=== PATIENT | female | born 1940 | race Caucasian/White ===

== ENCOUNTER 2016-08-26 12:24 | Inpatient (IN) ==
[2016-08-26] MEDS ORDERED: NITROSTAT SL PRN (12:48)
[2016-08-26] MEDS ORDERED: VASOTEC IV IVP PRN (12:48)
[2016-08-26] MEDS ORDERED: MORPHINE 4 MG/ML SYRINGE IVP PRN (12:48)
[2016-08-26] MEDS ORDERED: TYLENOL PO PRN (12:48)
[2016-08-26] MEDS ORDERED: VISTARIL INJ IM PRN (12:48)
[2016-08-26] MEDS ORDERED: ATROPINE SULFATE PFS IVP PRN (12:48)
[2016-08-26 13:06] LABS: BASOPHILS # (AUTO) 0.1 K/uL (0-0.2); BASOPHILS % (AUTO) 0.6 % (0.0-3.0); EOSINOPHILS # (AUTO) 0.1 K/ul (0.0-0.7); EOSINOPHILS % (AUTO) 0.8 % (0.0-7.0); HEMATOCRIT 40.7 % (37.0-47.0); HEMOGLOBIN 13.9 g/dl (12.0-16.0); IMMATURE GRANULOCYTE % (AUTO) 0.3 % (0.0-5.0); LYMPHOCYTES # (AUTO) 1.9 K/uL (0.60-3.4); LYMPHOCYTES % (AUTO) 19.3 (10.0-50.0); MEAN CORPUSCULAR HEMOGLOBIN 30.9 pg (27.0-31.0); MEAN CORPUSCULAR HGB CONC 34.2 (31.8-35.4); MEAN CORPUSCULAR VOLUME 90.4 fl (81.0-99.0); MONOCYTES # (AUTO) 0.6 K/uL (0.4-2.0); MONOCYTES % (AUTO) 6.5 (0-10); NEUTROPHILS % (AUTO) 72.5; PLATELET COUNT 296 10^3/uL (140-440); WHITE BLOOD COUNT 9.71 K/ul (4.6-10.2)
[2016-08-26 13:11] VITALS: BMI 35.5
[2016-08-26 13:46] LABS: ALBUMIN/GLOBULIN RATIO 1.11; ANION GAP 13.7; BILIRUBIN,TOTAL 0.38 mg/dL (0.00-1.20); BUN/CREATININE RATIO 17.59; CALCIUM 9.7 mg/dL (8.2-10.2); CREATININE 1.08 mg/dL (0.60-1.30); POTASSIUM 4.7 mmol/L (3.5-5.10); TOTAL PROTEIN 7.6 g/dL (5.8-8.1); TROPONIN I 0.021 ng/ml (0.0000-0.4000)
[2016-08-26 13:59] LABS: CREATINE KINASE MB 2.3 ng/ml (0.0-3.6)
[2016-08-26 14:20] LABS: BILIRUBIN,URINE Negative (NEGATIVE); KETONES,URINE Negative (NEGATIVE); LEUKOCYTE ESTERASE ,URINE Trace (NEGATIVE); NITRITE,URINE Negative (NEGATIVE); PROTEIN,URINE Negative (NEGATIVE); URINE, BLOOD Trace-intact (NEGATIVE)
[2016-08-26 14:23] LABS: ADD URINE MICROSCOPIC YES
[2016-08-26] MEDS: PROTONIX PO SCH (14:26)
--- NOTE | 2016-08-26 15:56 | DI ---
EXAM: CHEST FRONTAL VIEW HISTORY: Chest pain. COMPARISON: None FINDINGS: Heart size is within normal limits. There is at least mild aortic atherosclerosis. No ac nery infiltrates are seen. There is no consolidation, visible pleural fluid or pneumothorax. Bones r eveal no acute fracture. IMPRESSION: No acute cardiopulmonary process.
--- NOTE | 2016-08-26 16:16 | US ---
EXAM: Carotid ultrasound HISTORY: Carotid stenosis COMPARISON: 01/06/2016 TECHNIQUE: Carotid ultrasound was performed using parish scale, color, and Doppler imaging was perfor med. FINDINGS: Right carotid: There is atherosclerotic plaque in the bulb/proximal internal carotid artery. Peak systolic velocity measurement in the right internal carotid artery is 1.1 meters per second. End-di astolic velocity measurement in the right internal carotid artery is 0.3 meters per second. Right i nternal to common carotid artery peak systolic velocity ratio is 1.7. Flow in the right vertebral a rtery is antegrade. Left carotid: There is atherosclerotic plaque in the bulb/proximal internal carotid artery. Peak s ystolic velocity measurement in the left internal carotid artery is 1.0 meters per second. End-chi tolic velocity measurement in the left internal carotid artery is 0.2 meters per second. Left inter nal to common carotid artery peak systolic velocity ratio measures 1.1. Flow in the left vertebral artery is antegrade. IMPRESSION: 1. Right internal carotid: Peak systolic velocity corresponds with mild (less than 50%) stenosis, memo morales on the upper end of this range 2. Left internal carotid: Peak systolic velocity corresponds with mild (less than 50%) stenosis
[2016-08-26] MEDS: REGLAN PO SCH (16:37)
[2016-08-26] MEDS ORDERED: LOPRESSOR PO SCH (21:00)
[2016-08-26] MEDS ORDERED: ZOCOR PO SCH (21:00)
[2016-08-26 21:44] LABS: CREATINE KINASE 117 U/L; MYOGLOBIN 75 ng/ml
[2016-08-26 21:54] LABS: CREATINE KINASE MB 1.8 ng/ml (0.0-3.6)
[2016-08-27] MEDS: PROTONIX PO SCH ×2 (00:50→05:43)
[2016-08-27] MEDS ORDERED: SYNTHROID PO SCH (06:30)
[2016-08-27] MEDS ORDERED: ASPIRIN EC PO SCH (08:00)
[2016-08-27] MEDS ORDERED: ASPIRIN CHEWABLE PO SCH (08:00)
[2016-08-27] MEDS ORDERED: MOBIC PO SCH (08:00)
[2016-08-27] MEDS ORDERED: VITAMIN E PO SCH (09:00)
[2016-08-27] MEDS ORDERED: BENICAR PO SCH (09:00)
[2016-08-27] MEDS ORDERED: HYDROCHLOROTHIAZIDE PO SCH ×23 (09:00)
[2016-08-27] MEDS ORDERED: SENNA PO SCH (09:00)
[2016-08-27] MEDS ORDERED: [UNRECOGNIZED DRUG - OTHER] PO SCH ×22 (09:00)
[2016-08-27] MEDS ORDERED: ALLEGRA PO SCH (09:00)
[2016-08-27] MEDS ORDERED: OLMESARTAN PO SCH ×22 (09:00)
[2016-08-27] MEDS ORDERED: NON-FORMULARY MEDICATION (Meloxicam [Mobic] 15 MG) PO SCH ×22 (09:00)
[2016-08-27] MEDS ORDERED: VITAMIN E 1000 UNIT PO SCH (09:00)
--- NOTE | 2016-08-27 09:28 | HP ---
DATE OF SERVICE: 08/27/16 REASON FOR HOSPITALIZATION: Chest pain. HISTORY OF PRESENT ILLNESS: This is a 76-year-old female with chief complaint of chest pain, burning times 24 hours, nonexertional with no radiation. She has multiple CAD risk factors with family history of CAD, BMI greater than 30, dyslipidemia and hypertension. The patient is also feeling fatigued/tired. Also has some GERD symptoms. REVIEW OF SYSTEMS: CONSTITUTIONAL: Fatigue. No fever. HEENT: No sinus drainage, no sore throat. RESPIRATORY: No cough, no congestion. No hemoptysis. CARDIOVASCULAR: Shortness of breath. Atypical chest pain for coronary artery disease. No angina, CHF symptoms or palpitations. GASTROINTESTINAL: No melena or abdominal pain. No GERD. GENITOURINARY: No hematuria, no polyuria. ESTIMATE CLERK: No blackout, no dizziness, no headache, no double vision. MUSCULOSKELETAL: Osteoarthritis pain. No joint swelling. ENDOCRINE: No weight loss, no weight gain. SKIN: Not dry, no rash. PSYCHIATRIC: Anxious. No depression, no suicidal thoughts, no homicidal thoughts. PAST MEDICAL/SURGICAL HISTORY: 1. Left bundle branch block 2. Severe hypertension 3. Dyslipidemia 4. Hypothyroidism 5. GERD 6. Carotid stenosis 50% 7. Vitamin B12 deficiency 8. D & C 9. Tubal ligation 10. Tonsillectomy SOCIAL HISTORY: . Nonsmoker. No alcohol use. Two children. Employee of [employer]. FAMILY HISTORY: Father and mother . Two brothers (one , one living), no sisters. MEDICATIONS: 1. Benicar HCT 40/12.5 mg daily 2. Synthroid 100 mcg daily 3. Mobic 15 mg p.o. daily 4. Lopressor 50 mg p.o. daily bedtime 5. Simvastatin 40 mg p.o. daily bedtime 6. Aspiriin 81 mg daily 7. Oqbd-jzx-nzcddmr sinus medication 8. Fhyu-itz-lxxyxpn laxative 9. Xoax-eam-pubyknf Vitamin E 1000 units p.o. daily 10. Senna 8.6 mg p.o. daily ALLERGIES: CODEINE, HYZAAR (MADE SICK) PHYSICAL EXAMINATION: V/S: Temperature 97.3, respiratory rate 18, Pulse 70, BP 198/100, 02 sat 98%. GENERAL APPEARANCE: Oriented times three. HEENT: Normal. NECK: No JVP, no bruits. RESPIRATORY: Lungs are clear. CARDIOVASCULAR: S1, S2, no S3, no murmurs. No cyanosis, clubbing. No ascites. GI/ABDOMEN: No tenderness. Bowel sounds are active. EXTREMITIES: No edema, pulses +1, equal. ESTIMATE CLERK: Deep tendon reflexes, sensory, motor and gait all normal. LABS AND X-RAY FINDINGS: Chest x-ray normal. UA practically normal. Creatinine 1, BUN 19, potassium 4.7 normal. Liver profile normal. T4, TSH normal. A1C 5.7. CK-MB, troponins negative. Hemoglobin 13.9, hematocrit 40, WBC 9,000 with normal differential. EKG - left bundle branch block which is practically unchanged for more than 10 to 15 years. ASSESSMENT: 1. CHEST PAIN 2. LEFT BUNDLE BRANCH BLOCK/ABNORMAL EKG 3. SEVERE HYPERTENSION 4. DYSLIPIDEMIA 5. HYPOTHYROIDISM 6. BMI GREATER THAN 30 7. VITAMIN B12 DEFICIENCY 8. HISTORY OF CAROTID STENOSIS, 50% 2008 9. GERD PLAN: 1. Admit Regular 2. Routine telemetry 3. Continue medications 4. Vasotec 1.25 mg IV for systolic blood pressure greater than 150 5. Echocardiogram 6. Stress echo Sestamibi a.m. 7. T4 and TSH 8. A1C 9. Protonix 40 mg p.o. now and b.i.d. 10. Reglan 5 mg p.o. b.i.d. 11. Carotid scan TIME SPENT: More than 70 minutes. MTDD
[2016-08-27] MEDS: REGLAN PO SCH (09:37)
--- NOTE | 2016-08-27 10:02 | PCM.PROG ---
Attending Provider: ATTENDING PROVIDER: Dr. SHAINA NIXON DATE OF SERVICE: 08/27/16 SUBJECTIVE: This 76 year old WHITE/ F was hospitalized 08/26/16. The patient is hospitalized with chest burning, chest pain, and severe hypertension. The patient's blood pressure is labile with wide swings in systolic and diastolic pressure. EKG reveals left bundle branch block type of pattern with sinus rhythm. Cardiac markers negative. REVIEW OF SYSTEMS: (Negative at rest) CONSTITUTIONAL: No night sweats. No fatigue, malaise, lethargy. No fever or chills. HEENT: Eyes: No visual changes. No eye pain. No eye discharge. ENT: No runny nose. No epistaxis. No sinus pain. No odynophagia. No congestion. RESPIRATORY: No cough, no congestion. No hemoptysis. CARDIOVASCULAR: No angina symptoms. No CHF symptoms. No atypical chest pain for CAD. No palpitations. No shortness of breath. GASTROINTESTINAL: No abdominal pain. No nausea or vomiting. No diarrhea or constipation. No hematemesis. No hematochezia. GENITOURINARY: No urgency. No frequency. No dysuria. No hematuria. No obstructive symptoms. No discharge. No pain. No significant abnormal bleeding. MUSCULOSKELETAL: No musculoskeletal pain; no joint swelling. NEUROLOGICAL: Awake, alert, oriented to time, place and person. No headache. No neck pain. No syncope. No seizures. No dizziness. PSYCHIATRIC: Not anxious. No depression. No suicidal thoughts. No homicidal thoughts. SKIN: No rash. No lesions. No wounds. ENDOCRINE: No unexplained weight loss. No weight gain. HEMATOLOGIC/LYMPHATIC: No anemia. No purpura. No petechiae. No prolonged or excessive bleeding. No palpable lymph nodes. PHYSICAL EXAMINATION: GENERAL: The patient is awake, alert and oriented. VITAL SIGNS: Temperature 97.0 F, Pulse 62, Respiratory Rate 16, BP 126/65, Pulse Ox 96% HEENT: Head normocephalic, atraumatic. Eyes: Extraocular muscles are intact. Pupils are equal, round and reactive to light and accommodation. Ears: No lesions. Nose appeared normal. Throat: No exudate or erythema. NECK: Supple. No JVD, no carotid bruit. No lymphadenopathy or thyromegaly. LUNGS: Clear to auscultation. Percussion note normal. Chest symmetrical. HEART: S1, S2, no S3. No murmurs. No cyanosis or clubbing. No ascites. Pulses: Dorsalis pedis and posterior tibial pulses +1 to +2 both sides. ABDOMEN: Soft. Non-tender. Bowel sounds active. No CVA tenderness. No mass felt. EXTREMITIES: No edema. Full range of motion of all extremities, equal. NEUROLOGIC: No focal deficit. Cranial nerves II through XII are grossly intact. No headache, no double vision or headache. SKIN: Not dry. Intact. Turgor-normal. LYMPHATIC: No palpable lymph nodes/no lymphedema. MUSCULOSKELETAL: Normal joints with no swelling. Muscle tone is normal. LAB REVIEW: 08/26/16 12:48 08/26/16 13:07 08/26/16 21:05: Total Creatine Kinase 117, CK-MB (CK-2) 1.8, CK-MB (CK-2) % 1.81284, Myoglobin 75, Troponin I < 0.0100 08/26/16 14:10: Urine Color Yellow, Urine Clarity Clear, Urine pH 6.0, Ur Specific [place] 1.015, Urine Protein Negative, Urine Glucose (UA) Negative, Urine Ketones Negative, Urine Blood Trace-intact, Urine Nitrite Negative, Urine Bilirubin Negative, Urine Urobilinogen 0.2, Ur Leukocyte Esterase Trace, Urine Microscopic RBC 5-10, Urine Microscopic WBC 2-5, Ur Squamous Epith Cells 2-5, Ur Renal Epithelial Cell 2-5 08/26/16 13:07: Sodium 140, Potassium 4.7, Chloride 104, Carbon Dioxide 27, Anion Gap 13.7, BUN 19 H, Creatinine 1.08, Estimated GFR (MDRD) 49.00, BUN/ Creatinine Ratio 17.59, Glucose 98, Hemoglobin A1c 5.7, Calcium 9.7, Total Bilirubin 0.38, AST 19, ALT 16, Alkaline Phosphatase 70, Total Creatine Kinase 132, CK-MB (CK-2) 2.3, CK-MB (CK-2) % 1.10990, Myoglobin 65, Troponin I 0.0210, Total Protein 7.6, Albumin 4.0, Globulin 3.6, Albumin/Globulin Ratio 1.11, TSH 2.280, Free T4 1.01 08/26/16 12:48: WBC 9.71, RBC 4.50, Hgb 13.9, Hct 40.7, MCV 90.4, MCH 30.9, MCHC 34.2, RDW Coeff of Fernanda 13.2, Plt Count 296, Immature Gran % (Auto) 0.3, Neut % (Auto) 72.5, Lymph % (Auto) 19.3, [place] % (Auto) 6.5, Eos % (Auto) 0.8, Baso % (Auto) 0.6, Immature Gran # (Auto) 0.0, Neut # 7.0 H, Lymph # 1.9, [place] # 0.6, Eos # 0.1, Baso # 0.1 ASSESSMENT: 1. Chest pain with chest burning likely seems noncardiac, likely reflux disease. 2. Labile hypertension. 3. Dyslipidemia. 4. Hypothyroidism. 5. History of pancreatitis. 6. Strong family history of heart disease. PLAN: 1. H. Pylori testing per stool 2. Sestamibi pending Echocardiogram showed LVH, borderline with enlarged LA cavity; normal LV contractility. Normal valves. Stress test inconclusive because of left bundle branch block but had no changes on EKG. The blood pressure response was hypertensive with no arrhythmias. No chest pain. LV contractility resting and post exercise is normal. Plan and coordination of the patient's care discussed in the presence of Waist Cutter and nurse. CONDITION: Stable. SCRIBED BY: ZULEIKA SHERMAN Computer Typesetter scribed while in presence of service performed by Dr. SHANIA NIXON on 08/27/16 ([id number])
--- NOTE | 2016-08-27 11:33 | NM ---
Cardiac Stress Test HISTORY: Chest pain. COMPARISON: None of this type. TECHNIQUE: Resting: The patient was injected with 13.1 mCi of 99m technetium Sestamibi (Cardiolite) intravenou sly after which a "resting" SPECT study of the heart was performed. Stress: The patient was stressed using a Cameron protocol and at the appropriate time injected with 3 2.6 mCi of 99m technetium Sestamibi (Cardiolite) after which a "stress" SPECT study of the heart was performed. Gated images of the heart were also obtained to assess wall motion and calculate ejectio n fraction. For details of the stress protocol employed, reference is made to the separate report o f the performing physician. FINDINGS: The stress perfusion images demonstrate a generally uniform distribution of activity in t he left ventricular myocardium. The resting perfusion images demonstrate no evidence of significant redistribution/ischemia. The left ventricular ejection fraction (LVEF) is 72 %. The left ventricular wall motion was not directly evaluated. IMPRESSION: 1. Left ventricular myocardial perfusion is within normal limits. 2. The left ventricular ejection fraction (LVEF) is 72 %. 3. The left ventricular wall motion was not directly evaluated.
[2016-08-27 14:05] VITALS: BP 118/61; TEMP 98
[2016-08-27 14:31] LABS: H. PYLORI ANTIBODY NEGATIVE (NEGATIVE); H.PYLORI INTERNAL QC INTERNAL QC VALID
--- NOTE | 2016-08-27 15:17 | CM.DICTOOL ---
ADMISSION: 08/26/16 12:24 DISCHARGE: 08/27/16 DATE OF SERVICE: 08/27/16 FINAL DIAGNOSIS CHEST PAIN SEVERE AND LABILE HYPERTENSION MILD CAROTID STENOSIS (LESS THAN 50% BOTH LUIS AND LICA-CAROTID U/S 08/26/16) THYROID DISEASE DYSLIPIDEMIA B 12 DEFICIENCY GERD HISTORY OF PANCREATITIS ARTHRITIS D & C TUBAL LIGATION CHOLECYSTECTOMY LAST VITALS Temp Pulse Resp BP Pulse Ox 97.4 F L 64 20 128/84 99 08/27/16 10:00 08/27/16 10:00 08/27/16 10:00 08/27/16 10:00 08/27/16 10:00 ACTIVE HOME MEDICATIONS Acetaminophen (Tylenol) 650 mg PO Q4H PRN PRN Reason: Headache Aspirin (Aspirin Ec) 81 mg PO DAILYWM [facility] Last Admin: 08/27/16 09:38 Dose: 81 mg Fexofenadine HCl (Lulu) 60 mg PO DAILY [facility] Last Admin: 08/27/16 09:37 Dose: 60 mg Levothyroxine Sodium (Synthroid) 100 mcg PO QDAC [facility] Last Admin: 08/27/16 05:43 Dose: 100 mcg Meloxicam (Mobic) 15 mg PO DAILYWM [facility] Last Admin: 08/27/16 09:39 Dose: 15 mg Metoprolol Tartrate (Lopressor) 50 mg PO BEDTIME [facility] Last Admin: 08/26/16 20:31 Dose: 50 mg Olmesartan (Benicar) 20/12.5 mg PO Q AM & AT 5 PM QD [facility] (was Benicar 40/ 12.5 QD) Last Admin: 08/27/16 09:38 Dose: 40 mg (OFFICE SAMPLES #28) Pantoprazole Sodium (Protonix) 40 mg PO BIDAC [facility] ([facility]) Last Admin: 08/27/16 05:43 Dose: 40 mg Sennosides (Senna) 8.6 mg PO DAILY [facility] Last Admin: 08/27/16 09:38 Dose: 8.6 mg Simvastatin (Zocor) 40 mg PO BEDTIME [facility] Last Admin: 08/26/16 20:31 Dose: 40 mg Vitamin E (Vitamin E) 800 unit PO DAILY [facility] Last Admin: 08/27/16 09:38 Dose: 800 unit DENOTES MEDICATIONS THAT ARE NEW OR DOSE CHANGES THAT OCCURRED DURING THIS HOSPITALIZATION THAT WILL BE CONTINUED AT DISCHARGE ALLERGIES codeine Adverse Reaction (Verified 08/26/16 13:00) NEW PRESCRIPTIONS: 1) BENICAR/HCT 20/12.5 MG, TAKE ONE TABLET EVERY MORNING AND ONE TABLET AT 5 PM DAILY SAMPLES PROVIDED FROM DR. NIXON'S OFFICE 2) PROTONIX 40 MG, TAKE ONE TABLET BY MOUTH EVERY MORNING SMOKING: FORMER SMOKER NONE NOW DISEASE SPECIFIC EDUCATION: CHEST PAIN GERD TEST RESULTS ACTIVITY HOME MEDICATIONS NEW PRESCRIPTIONS FOLLOW UP LAB REVIEW: 08/26/16 12:48 08/26/16 13:07 08/26/16 21:05: Total Creatine Kinase 117, CK-MB (CK-2) 1.8, CK-MB (CK-2) % 1.83562, Myoglobin 75, Troponin I < 0.0100 08/26/16 14:10: Urine Color Yellow, Urine Clarity Clear, Urine pH 6.0, Ur Specific [place] 1.015, Urine Protein Negative, Urine Glucose (UA) Negative, Urine Ketones Negative, Urine Blood Trace-intact, Urine Nitrite Negative, Urine Bilirubin Negative, Urine Urobilinogen 0.2, Ur Leukocyte Esterase Trace, Urine Microscopic RBC 5-10, Urine Microscopic WBC 2-5, Ur Squamous Epith Cells 2-5, Ur Renal Epithelial Cell 2-5 08/26/16 13:07: Sodium 140, Potassium 4.7, Chloride 104, Carbon Dioxide 27, Anion Gap 13.7, BUN 19 H, Creatinine 1.08, Estimated GFR (MDRD) 49.00, BUN/ Creatinine Ratio 17.59, Glucose 98, Hemoglobin A1c 5.7, Calcium 9.7, Total Bilirubin 0.38, AST 19, ALT 16, Alkaline Phosphatase 70, Total Creatine Kinase 132, CK-MB (CK-2) 2.3, CK-MB (CK-2) % 1.92805, Myoglobin 65, Troponin I 0.0210, Total Protein 7.6, Albumin 4.0, Globulin 3.6, Albumin/Globulin Ratio 1.11, TSH 2.280, Free T4 1.01 PLAN: DISCHARGE HOME TODAY RETURN TO SEE DR. NIXON IN 5-7 DAYS. PLEASE PHONE TO SCHEDULE YOUR APPOINTMENT ([phone]) RESUME YOUR HOME MEDICATIONS PER LIST PROVIDED BY THE NURSING STAFF NEW MEDICATIONS: 1) BENICAR/HCT 20/12.5 MG, TAKE ONE TABLET EVERY MORNING AND ONE TABLET AT 5 PM DAILY SAMPLES PROVIDED FROM DR. NIXON'S OFFICE 2) PROTONIX 40 MG, TAKE ONE TABLET BY MOUTH EVERY MORNING ACTIVITY: GET PLENTY OF REST AT HOME. GRADUALLY INCREASE YOUR ACTIVITY LEVEL ACCORDING TO YOUR TOLERATION DIET: HEALTHY HEART SUMMARY: THE PATIENT IS ALERT AND ORIENTED X3. SHE CURRENTLY RESIDES AT HOME AND PLANS TO RETURN THERE AT DISCHARGE. SHE IS INDEPENDENT WITH ADL'S AND DOES NOT REQUIRE ASSISTIVE EQUIPMENT. SHE DOES NOT UTILIZE HOME HEALTH SERVICES. SHE CONTINUES TO BE ABLE TO PROVIDE HER OWN TRANSPORTATION. HER SKIN TURGOR SHOWS ADEQUATE HYDRATION. THERE ARE NO DECUBITUS ULCERS AT DISCHARGE. SHANIA NIXON M.D.
--- NOTE | 2016-08-30 10:57 | STECHOSEST ---
Date of Test: 7Reason for Exam: CHEST PAIN Ordering Physician: SHANIA NIXON Current Medications: SYNTHROID, MOBIC, REGLAN, LOPRESSOR, NITROSTAT, BENICAR, PROTONIX, ZOCOR Physical Findings: S1, S2, NO S3 Resting EKG: SINUS RHYTHM/LEFT BUNDLE BRANCH BLOCK Target Heart Rate: 120/142 STAGE MPH/GRADE HEART RATE BPM BLOOD PRESSURE mmhg RHYTHM S-T SEGMENT UP DOWN SYMPTOMS,COMMENTS At Rest 63 170/110 SR X NONE 1 1.7/10% 2 2.5/12% 3 3.4/14% 4 4.2/16% 5 5.0/18% Immediately after 138 160/110 SR X FATIGUE Total Time: 2:48 Maximum Heart Rate Reached: 138 Reason for Termination: FATIGUE 3 MIN POST EXERCISE, HR 87, BP 216/84 MMHG, SINUS RHYTHM, INTERPRETATION: 96% OXYGEN SATURATION ON ROOM AIR WITH EXERCISE 1. INCONCLUSIVE FOR ISCHEMIA PATIENT HAS BASELINE ABNORMAL S-T WAVE CHANGES 2. NO CHEST PAIN OR CHEST DISCOMFORT 3. NO ARRHYTHMIAS 4. BLOOD PRESSURE RESPONSE: HYPERTENSION AT REST AND WITH DOBUTAMINE INFUSION NORMAL LEFT VENTRICULAR CONTRACTILITY--RESTING AND WITH EXERCISE SESTAMIBI TO FOLLOW MTDD
--- NOTE | 2016-08-30 11:01 | ECHOSTRESS ---
Date of Exam: 08/27/16 Ordering Physician: SHANIA NIXON Reason for Echo: CHEST PAIN, LBBB/STRESS TEST--INCONCLUSIVE M-Mode Normal Adult Results LV Dimensions Normal Adult Results AoV Opening excursions >1.6 LVEDD-base- 3.5-5.8 Ao root dimensions 2.0-3.7 LVESD-base- 3.1-4.6 L. Atrium dimensions 1.9-3.8 Post. Wall thickness 0.8-1.1 IV septum (thickness) 0.7-1.2 Post. Wall excursion 0.72-1.3 Septal motion Systolic motion R. Ventricular cavity 1.5-2.0 LVEF 60% Paradoxical septal wall motion 2-D: NORMAL LEFT VENTRICULAR CONTRACTILITY--RESTING AND POST EXERCISE M-MODE: MV: AV: TV: PV: CHAMBER SIZE: WALL MOTION: NORMAL LEFT VENTRICULAR CONTRACTILITY--RESTING AND POST EXERCISE PERICARDIUM: INTERPRETATION: 1. NORMAL LEFT VENTRICULAR CONTRACTILITY--RESTING AND POST EXERCISE SESTAMIBI TO FOLLOW MTDD
--- NOTE | 2016-08-30 11:12 | ECHO2D ---
Date of Exam: 08/27/16 Ordering Physician: SHANIA NIXON Reason for Echo: CHEST PAIN/LBBB M-Mode Normal Adult Results LV Dimensions Normal Adult Results AoV Opening excursions >1.6 >1.6 LVEDD-base- 3.5-5.8 4.1 Ao root dimensions 2.0-3.7 3.2 LVESD-base- 3.1-4.6 L. Atrium dimensions 1.9-3.8 4.3 Post. Wall thickness 0.8-1.1 1.2 IV septum (thickness) 0.7-1.2 1.2 Post. Wall excursion 0.72-1.3 NORMAL Septal motion NORMAL Systolic motion R. Ventricular cavity 1.5-2.0 NORMAL LVEF 60% 55% Paradoxical septal wall motion NORMAL 2-D : ENLARGED LEFT ATRIAL CAVITY--NORMAL LEFT VENTRICLE CAVITY--NORMAL VALVES, NO EFFUSION NO THROMBUS, NORMAL LEFT VENTRICLE CAVITY SIZE M-MODE: MV: NORMAL AV: NORMAL TV: NORMAL PV: CHAMBER SIZE: ENLARGED LEFT ATRIAL CAVITY WALL MOTION: NORMAL PERICARDIUM: NORMAL INTERPRETATION: 1. BORDERLINE LEFT VENTRICULAR HYPERTROPHY WITH ENLARGED LEFT ATRIAL CAVITY 2. NORMAL LEFT VENTRICULAR CONTRACTILITY--NORMAL LEFT VENTRICLE CAVITY 3. NORMAL VALVES MTDD
--- NOTE | 2016-08-31 11:38 | DS ---
DATE OF SERVICE: 08/27/16 FINAL DIAGNOSIS: 1. CHEST PAIN 2. SEVERE AND LABILE HYPERTENSION 3. MILD CAROTID STENOSIS (LESS THAN 50% BOTH LUIS AND LICA- CAROTIDS U/S ) 4. THYROID DISEASE 5. DYSLIPIDEMIA 6. B12 DEFICIENCY 7. GERD 8. HISTORY OF PANCREATITIS 9. ARTHRITIS 10. D&C 11. TUBAL LIGATION 12. CHOLECYSTECTOMY DISCHARGE INSTRUCTIONS: Followup appointment with Dr. Gan in 5 to 7 days. Please phone to schedule your appointment. MEDICATIONS AT DISCHARGE: 1. Vitamin E 1000 unit p.o. daily 2. Simvastatin 40 mg p.o. bedtime 3. Sennosides (Senna) 8.6 mg p.o. daily 4. Metoprolol (Lopressor) 50 mg p.o. bedtime 5. Meloxicam (Mobic) 15 mg p.o. daily 6. Levothyroxine (Synthroid) 100 mg p.o. daily 7. Fexofenadine (Lulu) 60 mg p.o. daily 8. Aspirin 81 mg p.o. daily with meal NEW PRESCRIPTIONS: 1. Benicar/HCT 20/12.5 mg, take one tablet every morning and one tablet at 5 p.m. daily samples provided from Dr. Gan's office 2. Protonix 40 mg, take one tablet by mouth every morning. DIET INSTRUCTIONS: Healthy Heart. ACTIVITY: Get plenty of rest at home. Gradually increase your activity level according to your toleration. SMOKING: Former smoker - none now DISEASE SPECIFIC EDUCATION: Chest pain GERD Test results Activity Home medications New prescriptions Followup HOSPITAL COURSE: 76-year-old white female hospitalized with chest pain, burn type, center of chest off and on and also had severe hypertension, mostly labile. She hasn't been feeling well for the past few days. The patient was hospitalized. The patient has LBBB type of pattern on EKG for a number of years. Cardiac markers and EKGs were unchanged. The patient was started on antireflux measures because of burning type of chest pain, had some reflux type of component. The patient did not have any exertional chest discomfort. Today the patient underwent echocardiogram which showed normal LV contractility and normal valves. Stress echo Sestamibi was negative for ischemia. The patient was discharged home on Benicar samples to be taken 20-12.5 b.i.d. along with Metoprolol to be taken 50 mg at bedtime. The patient's carotid scan was unremarkable. The rest of the medications were continued. The patient is to be followed in 2 to 3 days as an outpatient. Status of Mobic will be discussed in the office. TIME SPENT: More than 60 minutes. CAYETANO
== END 2016-08-27 14:35 | disposition home or self-care (01) | DRG 313 ==
LOC: MEDSURG B 12:24
PROVIDERS: ADMIT Internal Medicine; ATTEND Internal Medicine
DX: R07.9 Chest pain, unspecified (principal); I65.23 Occlusion and stenosis of bilateral carotid arteries; I44.7 Left bundle-branch block, unspecified; I51.7 Cardiomegaly; I70.0 Atherosclerosis of aorta; I10 Essential (primary) hypertension; K21.9 Gastro-esophageal reflux disease without esophagitis; R06.02 Shortness of breath; E53.8 Deficiency of other specified B group vitamins; E03.9 Hypothyroidism, unspecified; Z82.49 Family history of ischemic heart disease and other diseases of the circulatory system; Z79.899 Other long term (current) drug therapy
CPT/HCPCS: 36415; 80053; 81001; 82550; 82553; 83036; 83874; 84439; 84443; 84484; 85025; 86677; 93005; 93010

== ENCOUNTER 2016-11-25 07:20 | Outpatient (CLI) ==
--- NOTE | 2016-11-25 08:21 | US ---
EXAM: Ultrasonography the posterior aspect of the left knee HISTORY: Pain left posterior knee COMPARISON: None available TECHNIQUE: Cano scale and color Doppler ultrasonography of the posterior aspect of left knee. FINDINGS: Within the posterior aspect of the left knee there is a heterogeneous, hypoechoic structure which me asures approximately 6.1 x 2.8 x 2.6 cm. A linear echogenic structure is seen within this structure 3.1 cm in length. IMPRESSION: 6.1 x 2.8 x 2.6 cm hypoechoic structure in the region of concern suggestive of a Fink's cyst. 3.1 cm linear echogenic structure in this region is nonspecific but could represent a joint body or other etiology MRI could be considered for further evaluation if clinically indicated.
== END 2016-11-25 07:21 | disposition home or self-care (01) ==
LOC: RAD 07:20
PROVIDERS: ATTEND Internal Medicine
DX: M25.562 Pain in left knee (principal)
CPT/HCPCS: 76882

== ENCOUNTER 2016-12-07 12:45 | Outpatient (CLI) ==
--- NOTE | 2016-12-07 13:45 | DI ---
EXAM: Four views of the left knee HISTORY: Left knee pain. COMPARISON: None FINDINGS: There is medial and lateral compartmental narrowing. There is minimal osteophyte formatio n bilaterally. There are questionable calcifications of the meniscus. The patella is normal in pos ition with mild narrowing, subchondral cysts and osteophyte formation. Soft tissues are unremarkable . 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
== END 2016-12-07 12:46 | disposition home or self-care (01) ==
LOC: RAD 12:45
PROVIDERS: ATTEND Emergency Medicine
DX: M25.562 Pain in left knee (principal)

== ENCOUNTER 2017-06-20 09:01 | Outpatient (CLI) ==
--- NOTE | 2017-06-20 09:41 | DI ---
EXAM: Radiographs, right foot HISTORY: Right foot pain. COMPARISON: None available. TECHNIQUE: Three views. FINDINGS: Bone mineralization is normal. There is no fracture or dislocation. The joint spaces are maintained although mild marginal osteophyte formation seen throughout the foot. Tiny retrocalcanea l spur noted. No erosive changes are seen. There is soft tissue calcifications along the medial asp ect of the first metatarsal phalangeal joint. IMPRESSION: 1. Mild osteoarthritis. 2. Soft tissue calcifications along the medial aspect of first MTP joint. Correlate for gout.
== END 2017-06-20 09:02 | disposition home or self-care (01) ==
LOC: RAD 09:01
PROVIDERS: ATTEND Internal Medicine
DX: S99.921A Unspecified injury of right foot, initial encounter (principal); M79.671 Pain in right foot

== ENCOUNTER 2017-11-02 09:20 | Outpatient (CLI) ==
--- NOTE | 2017-11-02 10:32 | DI ---
EXAM: Radiographs, left ankle HISTORY: Left ankle pain. COMPARISON: None available. TECHNIQUE: Three views. FINDINGS: Bone mineralization is decreased. There is an oblique fracture of the distal fibular diap hysis with mild lateral displacement major distal fracture fragment. Fibular fracture line is approx imately 3-4 cm above the tibiotalar joint. There is a moderately displaced transverse fracture throu gh the medial malleolus with minimal widening of the medial tibiotalar joint suggested. Mildly displ aced posterior medial malleolar fracture also present. Soft tissue swelling noted about the ankle. IMPRESSION: Displaced trimalleolar fracture with minimal tibiotalar subluxation.
--- NOTE | 2017-11-02 10:54 | DI ---
EXAM: Radiographs, left foot HISTORY: Left foot pain. COMPARISON: None available. TECHNIQUE: Three views. FINDINGS: Bone mineralization is decreased. There is an oblique fracture of the distal fibular diaphysis with m ild lateral displacement major distal fracture fragment. Fibular fracture line is approximately 3-4 c m above the tibiotalar joint. There is a moderately displaced transverse fracture through the medial malleolus with minimal widening of the medial tibiotalar joint suggested. Mildly displaced posterior medial malleolar fracture also present. Soft tissue swelling noted about the ankle. IMPRESSION: Displaced trimalleolar fracture with minimal tibiotalar subluxation.
== END 2017-11-02 09:21 | disposition home or self-care (01) ==
LOC: RAD 09:20
PROVIDERS: ATTEND Internal Medicine
DX: S99.912A Unspecified injury of left ankle, initial encounter (principal); W19.XXXA Unspecified fall, initial encounter

== ENCOUNTER 2018-09-28 06:32 | Outpatient (CLI) ==
--- NOTE | 2018-09-28 08:37 | DI ---
Exam: Two views of the chest. Comparison: 08/26/2016. Reason for exam: Chest pain, shortness of breath. FINDINGS: No pneumothorax, pleural effusion, or focal consolidation. The cardiac silhouette is not enlarged. The imaged osseous structures appear grossly unremarkable without acute fracture. Impression: No acute cardiopulmonary process.
--- NOTE | 2018-09-28 08:46 | US ---
EXAM: Bilateral carotid artery Doppler History: Dizziness. Comparison: Carotid Doppler 08/26/2016 Technique: Multiple sonographic images through the bilateral internal carotid arteries were obtained . Color duplex Doppler was used to interrogate vascular flow. Findings: The right ICA peak systolic velocity is within normal limits measuring 98 cm/sec. The right ICA/cca PSV ratio is normal at 1.1. The right vertebral artery is patent and demonstrates antegrade flow. G ray scale images demonstrate mild to moderate heterogeneous plaque buildup within the right internal carotid artery. The left ICA peak systolic velocity is within normal limits measuring 94 cm/sec. The left ICA/cca PS V ratio is normal at 1.2. The left vertebral artery is patent and demonstrates antegrade flow. Cano scale images demonstrate mild heterogeneous plaque buildup within the left internal carotid artery. Impression: No significant hemodynamic stenosis of the bilateral internal carotid arteries
--- NOTE | 2018-09-29 09:48 | ECHO2D ---
Date of Exam: 09/28/18 Ordering Physician: DR. SHANIA NIXON Room #: OP Reason for Echo: CHEST PAIN, SOB, DIZZINESS M-Mode Normal Adult Results LV Dimensions Normal Adult Results AoV Opening excursions >1.6 >1.6 LVEDD-base- 3.5-5.8 4.1 Ao root dimensions 2.0-3.7 3.1 LVESD-base- 3.1-4.6 L. Atrium dimensions 1.9-3.8 4.6 Post. Wall thickness 0.8-1.1 1.1 IV septum (thickness) 0.7-1.2 1.1 Post. Wall excursion 0.72-1.3 NORMAL Septal motion NORMAL Systolic motion R. Ventricular cavity 1.5-2.0 NORMAL LVEF 60% 55% Paradoxical septal wall motion NORMAL 2-D : 2-D M Mode Echocardiogram was performed using apical four chamber and left parasternal long and short axis views. Mitral, tricuspid and aortic valves appear to be normal. Contractility of the left ventricle seems to be normal, so is the cavity size. Enlarged Left atrial cavity size. Aortic root appears to be normal. There is no pericardial effusion. There is no thrombus noted in the left ventricular or left aortic cavity. No mitral valve prolapse noted. M-MODE: MV: NORMAL AV: NORMAL TV: NORMAL PV: CHAMBER SIZE: ENLARGED LEFT ATRIAL CAVITY WALL MOTION: NORMAL PERICARDIUM: NORMAL INTERPRETATION: 1. ENLARGED LEFT ATRIAL CAVITY 2. NORMAL VALVES 3. NORMAL LEFT VENTRICULAR CONTRACTILITY MTDD
== END 2018-09-28 06:33 | disposition home or self-care (01) ==
LOC: CAR 06:32
PROVIDERS: ATTEND Internal Medicine
DX: R07.9 Chest pain, unspecified (principal); R42 Dizziness and giddiness; R06.02 Shortness of breath